=== PATIENT | male | born 1990 | race Caucasian/White ===

== ENCOUNTER 2016-10-21 01:29 | Emergency (ER) | payer OTHER ==
[~2016-10-21] VITALS: Ht 188 cm; Wt 58.6 kg
[2016-10-21 01:36] VITALS: TEMP 36.7; Ht 188 cm; Wt 58.6 kg
[2016-10-21] MEDS ORDERED: PROPARACAINE HCL 0.5% OP SOLN 15 ML BTL OP STA (01:42)
[2016-10-21] MEDS ORDERED: AMPH10TA2 PO (02:56)
[2016-10-21] MEDS ORDERED: EMTR1TAB PO (02:56)
[2016-10-21 03:08] VITALS: BP 143/97; PULSE 101; O2SAT 100
--- NOTE | 2016-10-21 03:12 | EMERGENCY ROOM VISIT NOTE ---
ED Visit Note First contact with patient: 01:42 CHIEF COMPLAINT: Red, irritated eye HISTORY OF PRESENT ILLNESS: This 26 yo presents to the emergency department complaining of pain and irritation to his eyes after accidentally spraying jaw skinner . Mild constant pain, irritating in nature, which is rated as 5/10. There is clear discharge from the eyes. No difficulty with vision. The patient does not wear contacts. There is no known trauma to the eye. The patient has not had any other upper respiratory symptoms. Tetanus is current. No foreign body to the eye. REVIEW OF SYSTEMS: A 6 system review of systems was completed with positives and pertinent negatives in the HPI. ALLERGIES:none MEDICATIONS:none PMH: none SOCIAL HISTORY: No drug use PHYSICAL EXAM: Vital Signs: Reviewed Nurse's notes, Temperature afebrile. GENERAL: Male, in no acute distress, well-developed, well-nurished. SKIN: Warm, dry. No cyanosis. No petechia. EYES: Both pupils are equal round and reactive to light and accomadation, EOMs intact. There is fair discharge in both eyes and moderate injection. There is no foreign body of the eyelid with lid eversion. Fundoscopic exam reveals no hemorrages, papiledema, or other abnormalities. No foreign body on the cornea, no hyphema. No uptake of flourescein visible with UV light. No corneal abrasion and no corneal ulcer. Visual Accuity is reviewed from nursing. EMERGENCY DEPARTMENT COURSE: I examined the patient. A slit lamp exam was performed and is as described above. Eye irrigation was done to both eyes. Patient felt better. foreign body or abrasion was seen. He was advised symptoms persist to follow-up with ophthalmology or here in the ER sooner for eye pain, visual bowels, worsening signs or symptoms or as needed The patient was discharged home in good condition. Differential diagnosis includes conjunctivitis, corneal abrasion, iritis, foreign body, allergic reaction and other etiologies were considered. DIAGNOSIS: Chemical conjunctivitis bilateral eyes DISCHARGE INSTRUCTIONS: Oxycodone (OxyIR) 5mg: Take 1-2 pills every four hours for breakthrough pain. Avoid alcohol, operating machinery or dangerous equipment, working on ladders or roofs, DRIVING, or situations where being under the influence may be dangerous. It is recommended to use an pydn-ngq-yseswap stool softener such as Colace, 100mg twice daily while taking this medication to avoid constipation. Acetaminophen(Tylenol) may be used for fever or pain. Use 1000mg every six hours as needed. Avoid using more than 3000mg in a 24 hour period. AND/OR Ibuprofen(Motrin, Advil) may be used for fever or pain. Use 600mg every six hours as needed. Take with food. Avoid using more than 2400mg in a 24 hour period. Do not use 2400mg per day for more than three consecutive days without physician direction. Prolonged inappropriate use can lead to stomach upset or ulcers. Follow up with family doctor or eye doctor if symptoms do not resolve in 2-3 days. Return sooner for any change in vision, eye pain, worsening signs or symptoms or as needed. Current/Historical Medications Scheduled Pqwqlgagmjlfb-Jrqbdhwvmfl-Vybk (Complera), 1 TAB PO DAILY Scheduled PRN Amphetamine-Dextroamphetamine 10MG (Adderall 10MG), 10 MG PO DAILY PRN for ADHD Allergies Coded Allergies: No Known Allergies (Unverified , 10/21/16) Vital Signs Date Time Temp Pulse Resp B/P Pulse Ox O2 Delivery O2 Flow Rate FiO2 10/21/16 03:08 101 18 143/97 100 Room Air 10/21/16 01:36 36.7 111 22 163/83 96 Room Air Medications Administered Medications (Trade) Dose Ordered Sig/Yesica Route Start Time Stop Time Status Last Admin Dose Admin Proparacaine HCl (Alcaine 0.5% Oph Soln) 2 drops NOW STAT OP 10/21/16 01:42 10/21/16 01:44 DC 10/21/16 01:52 2 DROPS Departure Information Referrals No Doctor, Assigned (PCP) Patient Instructions [facility]
[2016-10-21] MEDS ORDERED: OXYCODONE IR HOME PACK PO ONE (03:15)
[2016-10-21] MEDS ORDERED: ARTIFICIAL TEARS OP SOLN OP STA ×2 (03:17)
[2016-10-21] MEDS ORDERED: ARTIFICIAL TEARS OP OINT 3.5 GM TUBE ONE (03:21)
== END 2016-10-21 03:30 | disposition home or self-care (01) ==
LOC: C.EDB 01:31
DX: T65.891A Toxic effect of other specified substances, accidental (unintentional), initial encounter (principal); H10.213 Acute toxic conjunctivitis, bilateral

== ENCOUNTER 2016-12-24 04:20 | Emergency (ER) | payer OTHER ==
[~2016-12-24] VITALS: Ht 185.4 cm; Wt 74.9 kg
[~2016-12-24 04:20] MED LIST: AMPH10TA2 PO; EMTR1TAB PO
[2016-12-24 04:31] VITALS: TEMP 36.9; Ht 185.4 cm; Wt 74.9 kg
--- NOTE | 2016-12-24 04:47 | EMERGENCY ROOM VISIT NOTE ---
History Report prepared by Radha: Samuel Adam Under the Supervision of: Dr. Paras Martinez M.D. First contact with patient: 04:35 Chief Complaint: TESTICULAR PAIN Stated Complaint: SWOLLEN/PAINFUL TESTICLE History of Present Illness The patient is a 26 year old male who presents to the Emergency Room with complaints of worsening left testicular pain that began yesterday. He rates his pain an 8/10 in severity. He notes that there is swelling and redness to the area as well. He denies any fevers, chills, nausea, vomiting, back pain, or abnormal urinary symptoms. He is having some suprapubic abdominal pain as well, that worsens when he moves his left leg. He denies any recent injuries to the area. He took two Advil earlier that did help his pain mildly. He is currently on maintenance medication for HIV. He notes that his counts are okay. He notes that he may have had a couple of new recent sexual partners. He has a past medical history of syphilis. Source of History: patient Onset: yesterday Position: other (Left testicle) Symptom Intensity: 8/10 Quality: sharp Timing: worsening Modifying Factors (Worsening): movement Associated Symptoms: + abdominal pain, No fevers, No chills, No nausea, No vomiting, No back pain, No urinary symptoms Review of Systems See HPI for pertinent positives & negatives. A total of 10 systems reviewed and were otherwise negative. Past Medical & Surgical Medical Problems: (1) HIV (human immunodeficiency virus infection) (2) Syphilis Family History Patient reports no known family medical history. Social History Smoking Status: Never Smoker Smokeless Tobacco Use: No Drug Use: none Marital Status: single Housing Status: lives alone Occupation Status: employed, student Current/Historical Medications Scheduled Dangxrjiyknfy-Njjlhjdmfij-Qqzk (Complera), 1 TAB PO DAILY Levofloxacin (Levaquin), 500 MG PO DAILY Scheduled PRN Amphetamine-Dextroamphetamine 10MG (Adderall 10MG), 10 MG PO DAILY PRN for ADHD Allergies Coded Allergies: No Known Allergies (Unverified , 12/24/16) Physical Exam Vital Signs Date Time Temp Pulse Resp B/P (MAP) Pulse Ox O2 Delivery O2 Flow Rate FiO2 12/24/16 04:31 36.9 97 18 126/78 99 Room Air Physical Exam GENERAL: Patient is uncomfortable appearing and in moderate acute distress. HEENT: No acute trauma, normocephalic atraumatic, mucous membranes moist, no nasal congestion, no scleral icterus. NECK: No stridor, no adenopathy, no meningismus, trachea is midline. LUNGS: No dyspnea. Clear to auscultation and equal bilaterally. No wheeze, no rhonchi. HEART: Regular rate and rhythm. No murmurs, rubs, gallops appreciated. ABDOMEN: Soft, nontender, bowel sounds positive, no masses appreciated, no peritonitis. : Circumcised. Swollen erythematous left scrotum. Tender to palpation over the left testicle, in particular the epididymis. BACK: No midline tenderness, no CVA tenderness EXTREMITIES: Normal motion all extremities, no cyanosis, no edema. NEUROLOGIC: Alert and oriented, no acute motor or sensory deficits, no focal weakness, cranial nerves grossly intact. SKIN: No rash, no jaundice, no diaphoresis. Medical Decision & Procedures ER Provider Diagnostic Interpretation: Radiology results and stated below per my review and radiologist interpretation: US SCROTAL: The left epididymis is enlarged, heterogeneous, with increased vascularity suggesting an acute inflammatory of infectious epididymitis. 6 mm right epididymal head cyst. Microlithiasis within both testes. Otherwise the testes are unremarkable. No torsion, masses or sonographic features of infection. Question right-sided varicocele. Radiologist: Richard Aviles MD Laboratory Results Test 12/24/16 04:52 Urine Color DK YELLOW Urine Appearance CLOUDY (CLEAR) Urine pH 6.0 (4.5-7.5) Urine Specific [place] 1.036 (1.000-1.030) Urine Protein 3+ (NEG) Urine Glucose (UA) NEG (NEG) Urine Ketones NEG (NEG) Urine Occult Blood 3+ (NEG) Urine Nitrite NEG (NEG) Urine Bilirubin NEG (NEG) Urine Urobilinogen NEG (NEG) Urine Leukocyte Esterase MODERATE (NEG) Urine WBC (Auto) >30 /hpf (0-5) Urine RBC (Auto) >30 /hpf (0-4) Urine Hyaline Casts (Auto) 1-5 /lpf (0-5) Urine Epithelial Cells (Auto) 5-10 /lpf (0-5) Urine Bacteria (Auto) NEG (NEG) Laboratory results as reviewed by me. Medications Administered Medications (Trade) Dose Ordered Sig/Yesica Route Start Time Stop Time Status Last Admin Dose Admin Ceftriaxone Sodium (Rocephin Im) 250 mg NOW STAT IM 12/24/16 06:11 12/24/16 06:12 DC 12/24/16 06:24 250 MG Levofloxacin (Levaquin Tab) 500 mg NOW ONCE PO 12/24/16 06:15 12/24/16 06:16 DC 12/24/16 06:23 500 MG Oxycodone HCl (Roxicodone Immediate Rel 5MG Home Pack) 1 homepack UD ONCE PO 12/24/16 06:15 12/24/16 06:16 DC 12/24/16 06:23 1 HOMEPACK ED Course 0435: The patient was evaluated in room B5. A complete history and physical exam was performed. 0611: Ordered Rocephin Im 250 mg IM 0615: Ordered Oxycodone HCl 1 homepack PO, Levofloxacin 500 mg PO 0630: Reevaluated the patient. Discussed results and discharge instructions: He verbalized understanding and agreement. The patient is ready for discharge. Medical Decision Differential: Torsion, Mass, Infection, Abscess, Hernia, Hydrocele, Epididymitis , Trauma, Renal Colic, Intraabdominal Process, amongst other pathologies entertained. Medication Reconciliation: I attest that I have personally reviewed the patient 's current medication list. Blood pressure screening: Patient was found to have normal blood pressure on screening and does not require follow-up. 26 yr old HIV positive male who notes recent counts have been good arrives for evaluation of left testicular pain/redness. Admits multiple recent new sexual partners with anal intercourse. Exam and US confirm epididymitis. UA dirty. While I suspect this is more likely enteric pathogen I did discuss possibility of GC/Chlam and have sent off Urine RNA order. Stressed importance of repeat testing and follow up. Will treat with recommended Rocephin/Levaquin. Reviewed symptoms requiring return and discharge instructions given. As clearly will be uncomfortable he was given Oxy IR to go. Stable and not septic. Impression Primary Impression: Epididymitis, left Scribe Attestation The scribe's documentation has been prepared under my direction and personally reviewed by me in its entirety. I confirm that the note above accurately reflects all work, treatment, procedures, and medical decision making performed by me. Departure Information Dispostion Home / Self-Care Prescriptions Levofloxacin (Levaquin) 500 Mg Tab 500 MG PO DAILY for 10 Days, #10 TAB Prov: Paras Martinez M.D. 12/24/16 [facility]errals [facility] Forms HOME CARE DOCUMENTATION FORM, IMPORTANT VISIT INFORMATION, WORK / SCHOOL INSTRUCTIONS Patient Instructions ED Epididymitis, My [facility] Additional Instructions It is very important that you have further sexual transmitted infection testing done in 2 weeks to make sure that you have no evidence of infection remaining. Gonorrhea and Chlamydia testing was done on the urine which can take several days to return, and even if positive or negative, should have repeat testing. You have received a narcotic pain medication. These medications may cause drowsiness and should not be used with other sedative medications. Do not drive , drink alcohol, perform dangerous activities, nor make important decisions after taking these medications. intermediate use or inappropriate use may lead to addiction.
[2016-12-24 05:10] LABS: URINE APPEARANCE CLOUDY (CLEAR); URINE BILIRUBIN NEG (NEG); URINE COLOR DK YELLOW; URINE NITRITE NEG (NEG); URINE SPECIFIC GRAVITY 1.036 (1.000-1.030); UROBILINOGEN NEG (NEG); ZZUR CULT IF INDIC CLEAN CATCH YES
[2016-12-24 05:11] LABS: MANUAL MICROSCOPIC REQUIRED? NO; REVIEW REQ? NO
[2016-12-24] MEDS ORDERED: LEVO-366 PO (06:08)
[2016-12-24] MEDS ORDERED: CEFTRIAXONE SOD 350MG/ML 1 GM VIAL IM STA (06:11)
[2016-12-24] MEDS ORDERED: OXYCODONE IR HOME PACK PO ONE (06:15)
[2016-12-24] MEDS ORDERED: LEVOFLOXACIN 250 MG TAB PO ONE (06:15)
[2016-12-24 06:31] VITALS: BP 121/87; PULSE 89; O2SAT 99
--- NOTE | 2016-12-24 06:47 | DIAGNOSTIC IMAGING REPORT ---
(TESTICULAR) SCROTUM-CONT CLINICAL HISTORY: 26-year-old male presents with acute left-sided testicular pain and swelling. COMPARISON STUDY: None available TECHNIQUE: Real-time, grayscale, and color Doppler sonography of the testes and scrotum is performed. Images are reviewed in the transverse and longitudinal planes. FINDINGS: The right testis measures 4.2 x 2.3 x 2.8 cm. Within the right testicle there are multiple echogenic non-shadowing foci measuring up to 0.7 cm suggesting microlithiasis. No focal right-sided testicular mass is seen. Left testis measures 3.9 x 2.3 x 3.1 cm. Microlithiasis is also seen within the left testicle without focal mass. Testicular blood flow is normal and symmetric. Normal Doppler waveforms are identified in both testes. There is a small right epididymal head cyst or spermatocele, 0.6 x 0.3 x 0.4 cm. Prominent vascular structures are seen within the right hemiscrotum which increases upon Valsalva loss suggesting varicocele. There also appears to be a left-sided varicocele. The left epididymis is markedly heterogeneous, enlarged and hypervascular. IMPRESSION: 1. Enlarged heterogeneous and hypervascular left epididymis suggest acute epididymitis. 2. Bilateral testicular microlithiasis. 3. Suggested bilateral varicoceles. 4. 0.6 cm right epididymal head cyst or spermatocele. The above report was generated using voice recognition software. It may contain grammatical, syntax or spelling errors. Electronically signed by: Ko Lisa M.D. 12/24/2016 6:46 AM Dictated Date/Time: 12/24/2016 6:40 AM
== END 2016-12-24 06:32 | disposition home or self-care (01) ==
LOC: C.EDB 04:22
DX: N45.1 Epididymitis (principal); Z21 Asymptomatic human immunodeficiency virus [HIV] infection status; Z79.899 Other long term (current) drug therapy